=== PATIENT | female | born 1940 | race Caucasian/White ===

== ENCOUNTER 2024-10-26 15:13 | Outpatient (REF) | payer MEDICARE, SELFPAY ==
[2024-10-26 17:01] LABS: Anion Gap 12 (12-20); Blood Urea Nitrogen 27 mg/dL (9-16); Calcium 8.8 mg/dL (8.4-10.2); Carbon Dioxide 28 mmol/L (22-29); Chloride 98 mmol/L (96-108); Estimated Glomerular Filt Rate 18; Glucose Random 338 mg/dL (60-115); Sodium 134 mmol/L (135-145)
== END 2024-10-26 15:14 | disposition home or self-care (01) ==
LOC: HO.LAB 15:13
PROVIDERS: PCP Internal Medicine; Visit Provider Psychiatry & Neurology Neurology
DX: G30.9 Alzheimer's disease, unspecified (principal)
CPT/HCPCS: 36415; 80048

== ENCOUNTER 2024-12-06 16:13 | Outpatient (REF) | payer MEDICARE, SELFPAY ==
--- NOTE | ~2024-12-06 | CT_ITS ---
CLINICAL HISTORY: Alzheimers disease, unspecified CT of the head without intravenous contrast Comparison: None Findings: The ventricles and sulci are prominent, consistent with moderate generalized cerebral parenchymal volume loss. The ventricles are symmetric and the basilar cisterns are intact. Mild periventricular, deep and subcortical white matter hypodensities are nonspecific but statistically reflect the sequela of chronic small vessel ischemic change. No intracranial hemorrhage, extra-axial fluid collection, midline shift or mass-effect is evident. No evidence of acute large vessel or territorial ischemia. Brainstem and cerebellum unremarkable. Vascular calcifications indicate intracranial atherosclerosis. The imaged portion of the paranasal sinuses are clear. No mastoid effusions are demonstrated. The orbital contents are unremarkable. Calvarium is intact. Impression: 1. No CT evidence of acute intracranial abnormality. 2. Cerebral volume loss, intracranial atherosclerotic disease and mild sequela of chronic small vessel ischemic disease. This document has been electronically signed by: Feliciano Lynch MD on 12/07/2024 13:02:30
--- OUTSIDE RECORDS SUMMARY | 2024-12-06 18:18 | XMS_ITS | Continuity of Care Document ---
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 Name Role Phone Edy Rodriguez MD Unavailable Unavailable Allergies, Adverse Reactions, Alerts Substance Reaction Status Criticality atorvastatin Active No Information levofloxacin Active No Information Sulfa (Sulfonamide Antibiotics) Jaundice Active No Information Medications Medication Instructions Dosage Effective Dates (start - stop) Status Comments gabapentin 600 mg tablet take 1 tablet by oral route 2 times every day 600 MG - Active melatonin 10 mg tablet take 1 by Oral route once 1 - Active metformin 500 mg tablet take 1 tablet by oral route every day with morning and evening meals 500 MG - Active Vitamin D3 2,000 unit capsule take 1 Capsule by Oral route once 1 Capsule - Active iron ER 325 mg (65 mg iron) capsule,extended release take 1 by Oral route 3 times every day - Active PreserVision AREDS 14,320 unit-226 mg-200 unit capsule - Active omeprazole 20 mg capsule,delayed release take 1 Capsule by oral route every day before a meal 20 MG - Active Tylenol 325 mg tablet take 2 Tablet by oral route every 4 hours as needed 650 MG - Active Aspir-81 81 mg tablet,delayed release take 1 tablet by oral route every day - Active B Complex 1 tablet - Active MIRTAZAPINE (unknown strength) take 1 tablet by oral route every day at bedtime Not Available - Active metoprolol tartrate 25 mg tablet take 1 tablet by oral route 2 times every day 25 MG - Active trazodone 50 mg tablet take 1 tablet by oral route 3 times every day after meals 50 MG - Active VITAMIN B-12 (unknown strength) Not Available - Active Procedures Procedure Date OFFICE/OUTPATIENT VISIT, EST OFFICE/OUTPATIENT VISIT, EST TSH URINALYSIS W/ MICRO CBC W/DIFF WBC RBC SED RATE, AUTOMATED ANTI DNA SCREEN CRP ANTI-DNA TITER OFFICE/OUTPATIENT VISIT, EST CBC W/DIFF WBC RBC SED RATE, AUTOMATED CRP ALT/SGPT AST (SGOT) CREATININE ANTI DNA SCREEN C3/C4 URINALYSIS W/ MICRO ANTI-DNA TITER OFFICE/OUTPATIENT VISIT, EST CBC W/DIFF WBC RBC SED RATE, AUTOMATED CRP ALT/SGPT AST (SGOT) CREATININE C3/C4 ANTI DNA SCREEN ANTI-DNA TITER OFFICE/OUTPATIENT VISIT, EST OFFICE/OUTPATIENT VISIT, EST CBC W/DIFF WBC RBC SED RATE, AUTOMATED CRP ALT/SGPT AST (SGOT) CREATININE ANTI DNA SCREEN C3/C4 IRON FE IRON TIBC FERRITIN FOLIC ACID SERUM VITAMIN B-12 URINALYSIS W/ MICRO ANTI-DNA TITER OFFICE/OUTPATIENT VISIT, EST OFFICE/OUTPATIENT VISIT, EST Patient Not Seen OFFICE/OUTPATIENT VISIT, EST OFFICE/OUTPATIENT VISIT, EST ALT/SGPT AST (SGOT) CREATININE ANTI DNA SCREEN C3/C4 ANTI-DNA TITER OFFICE/OUTPATIENT VISIT, EST OFFICE/OUTPATIENT VISIT, EST CBC W/DIFF WBC RBC SED RATE, AUTOMATED CRP COMPREHEN METABOLIC PANEL ANTI DNA SCREEN C3/C4 ANTI-DNA TITER OFFICE/OUTPATIENT VISIT, EST OFFICE/OUTPATIENT VISIT, EST OFFICE/OUTPATIENT VISIT, EST Dexamethasone (1mg/unit) KENALOG (10mg/unit) CBC W/DIFF WBC RBC SED RATE, AUTOMATED CRP COMPREHEN METABOLIC PANEL ANTI DNA SCREEN C3/C4 URINALYSIS W/ MICRO ASSAY OF URINE CREATININE ANTI-DNA TITER OFFICE/OUTPATIENT VISIT, EST CBC W/DIFF WBC RBC SED RATE, AUTOMATED CRP COMPREHEN METABOLIC PANEL ANTI DNA SCREEN C3/C4 MONONUCLEAR CELL ANTIGEN OFFICE/OUTPATIENT VISIT, EST OFFICE/OUTPATIENT VISIT, EST RBC SED RATE, AUTOMATED CRP CPK ANTI DNA SCREEN C3/C4 NUCLEAR ANTIGEN ANTIBODY ANTI-DNA TITER OFFICE/OUTPATIENT VISIT, EST CPK ALDOLASE OFFICE/OUTPATIENT VISIT, EST CPK HEP B SURFACE ANTIBODY HBS AG HEPATITIS C ANTIBODY OFFICE/OUTPATIENT VISIT, NEW RBC SED RATE, AUTOMATED ADAM SCREEN RF LATEX QUALITATIVE ANTI DNA SCREEN NUCLEAR ANTIGEN ANTIBODY C3/C4 CRYOGLOBULIN- ALWAYS REFERENCE 14 ANTI HISTONE SPE PROTEIN, TOTAL SERUM, PLASMA OR WHOLE BL OOD URINALYSIS W/ MICRO ASSAY OF URINE CREATININE ADAM TITER ANTI-DNA TITER Advance Directives Directive Yes / No Effective Date File Name No Information Encounters Encounter Description Practice Location Reason(s) For Visit Diagnoses Date Provider Providers Copied on Encounter OFFICE/OUTPA TIENT VISIT, EST [facility], [address] [place] [address], [place], [place], [id number], [place] tel:[phone] [facility] musculoskeleta l complaints (chief complaint) 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 [address] [place] [address], [place], [place], [id number], [place]. tel:[phone] Specialist : Isra Coffey, [address], [place], [address]. tel:[phone] cialist: Juan Pablo Bates, [address], [place], [address]. tel:[phone] erring Provider: Ruben Tobias M, [address] [facility] [address], [place], [address]. 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 [address] [place] [address], [id number], [place]. tel:[phone] Specialist : Isra Coffey, [address], [place], [address]. tel:[phone] cialist: Juan Pablo Bates, [address], [place], [address]. tel:[phone] erring Provider: Ruben Randhawa, [address] [facility], [place], [address]. tel:[phone] OFFICE/OUTPA TIENT VISIT, EST [facility], [address] [place] [address], [id number], [place] tel:[phone] [facility] musculoskeleta l complaints (chief complaint) Essential (primary) hypertensionA therosclerosi s of CABG w angina pectoris w documented spasmGERD without esophagitisOA of 1st CMC jointSystemic disorders of connective tissue in other diseases classified elsewhereTrig parker finger, right middle fingerOsteopo rosis without current fractureStage 3 CKD Apr- 6-201 9 Jennifer Snow. [address] [place] [address], [id number], [place]. tel:[phone] Specialist : Isra Coffey, [address], [place], [address]. tel:[phone] cialist: Juan Pablo Bates, [address], [place], [address]. tel:[phone] erring Provider: Ruben Randhawa, [address] [facility], [place], [address]. tel:[phone] OFFICE/OUTPA TIENT VISIT, EST [facility], [address] [place] [address], [id number], [place] tel:[phone] [facility] musculoskeleta l complaints (chief complaint) Essential (primary) hypertensionA therosclerosi s of CABG w angina pectoris w documented spasmGERD without esophagitisOA of 1st CMC jointSystemic disorders of connective tissue in other diseases classified elsewhereTrig parker finger, right middle fingerOsteopo rosis without current fractureStage 3 CKD 8 Amor Card. [address] [place], [place], [id number], [place]. tel:[phone] Referring Provider: Edy Fajardo, [address] [place] [address], [id number] . tel:[phone] OFFICE/OUTPA TIENT VISIT, EST [facility], [address] [place] [address], [id number], [place] tel:[phone] [facility] [place] musculoskeleta l complaints (chief complaint) Essential (primary) hypertensionA therosclerosi s of CABG w angina pectoris w documented spasmGERD without esophagitisOA of 1st CMC jointSystemic disorders of connective tissue in other diseases classified elsewhereTrig parker finger, right middle fingerOsteopo rosis without current fractureStage 3 CKD 8 Jennifer Snow. [address] [place] [address], [id number], [place]. tel:[phone] Specialist : Isra Coffey, [address], [place], [address]. tel:[phone] cialist: Juan Pablo Bates, [address], [place], [address]. tel:[phone] erring Provider: Ruben Tobias M, [address] [facility] [address], [place], [address]. tel:[phone] OFFICE/OUTPA TIENT VISIT, EST [facility], [address] [place] [address], [place], [place], [id number], [place] tel:[phone] [facility] [place] musculoskeleta l complaints (chief complaint) Essential (primary) hypertensionA therosclerosi s of CABG w angina pectoris w documented spasmGERD without esophagitisOA of 1st CMC jointSystemic disorders of connective tissue in other diseases classified elsewhereTrig parker finger, right middle fingerOsteopo rosis without current fracture 8 Amor Card. [address] [place] [address], [id number], [place]. tel:[phone] Referring Provider: Edy Fajardo, [address] [place] [address], [id number] . tel:[phone] OFFICE/OUTPA TIENT VISIT, EST [facility], [address] [place] [address], [address] [place] [address], tel:[phone] [facility] [place] musculoskeleta l complaints (chief complaint) Essential (primary) hypertensionA therosclerosi s of CABG w angina pectoris w documented spasmGERD without esophagitisOA of 1st CMC jointSystemic disorders of connective tissue in other diseases classified elsewhereTrig parker finger, right middle fingerOsteopo rosis without current fracture 8 Jennifer Snow. [address] [place] [address], [id number], . tel:[phone] Specialist : Isra Coffey, [address], [place], [address]. tel:[phone] cialist: Juan Pablo Bates, [address], [place], [address]. tel:[phone] erring Provider: Ruben Randhawa, [address] [facility] [address], [place], [address]. tel:[phone] OFFICE/OUTPA TIENT VISIT, EST [facility], [address] [place] [address], [id number], [place] tel:[phone] [facility] musculoskeleta l complaints (chief complaint) Essential (primary) hypertensionA therosclerosi s of CABG w angina pectoris w documented spasmGERD without esophagitisOA of 1st CMC jointSystemic disorders of connective tissue in other diseases classified elsewhereTrig parker finger, right middle fingerOsteopo rosis without current fracture 8 Angela Nguyen. [address] [place] [address], [place], [place], [id number], . tel:[phone] Referring Provider: Edy Fajardo, [address] [place] [address], [id number] . tel:[phone] [facility], [address] [place] [address], [id number], [place] tel:[phone] [facility] [place] No Information 8 Jesus De. [address] [place] [address], [address] [place] [address], [place]. tel:[phone] [facility], [address] [place] [address], [address] [place] [address], [place] tel:[phone] [facility] [place] No Information 8 Angela Nguyen. [address] [place] [address], [address] [place] [address], [place]. tel:[phone] Referring Provider: Edy Fajardo, [address] [place] [address], [id number] . tel:[phone] OFFICE/OUTPA TIENT VISIT, EST [facility], [address] [place] [address], [id number], [place] tel:[phone] [facility] musculoskeleta l complaints (chief complaint) Systemic disorders of connective tissue in other diseases classified elsewhereOste oporosis without current fractureGERD without esophagitisAt herosclerosis of CABG w angina pectoris w documented spasmEssentia l (primary) hypertensionT suspender cutter finger, right middle fingerOA of 1st CMC joint 8 Jennifer Snow. [address] [place] [address], [address] [place] [address], [place]. tel:[phone] Specialist : Isra Coffey, [address], [place], [address]. tel:[phone] erring Provider: Ruben Randhawa, [address] [facility], [place], [address]. tel:[phone] OFFICE/OUTPA TIENT VISIT, EST [facility], [address] [place] [address], [id number], [place] tel:[phone] [facility] musculoskeleta l complaints (chief complaint) Systemic disorders of connective tissue in other diseases classified elsewhereOste oporosis without current fractureAther osclerosis of CABG w angina pectoris w documented spasmEssentia l (primary) hypertensionT ype 2 diabetes mellitus without complications GERD without esophagitisAn emia, due to chronic disease 7 Jennifer Snow. [address] [place], [place], [id number], [place]. tel:[phone] [facility] : [facility] [address], [place], [address]. tel:[phone] erring Provider: Ruben Randhawa, [address] [facility] [address], [place], [address]. tel:[phone] OFFICE/OUTPA TIENT VISIT, EST [facility], [address] [place] [address], [id number], [place] tel:[phone] [facility] Follow Up of musculoskeleta l complaints (chief complaint) Systemic disorders of connective tissue in other diseases classified elsewhereAthe rosclerosis of CABG w angina pectoris w documented spasmCHF 6 Jennifer Snow. [address] [place], [place], [id number], [place]. tel:[phone] Specialist : [facility] [address], [place], [address]. tel:[phone] erring Provider: Ruben Randhawa, [address] [facility], [place], [address]. tel:[phone] OFFICE/OUTPA TIENT VISIT, EST [facility], [address] [place] [address], [id number], [place] tel:[phone] [facility] musculoskeleta l complaints (chief complaint) Systemic disorders of connective tissue in other diseases classified elsewhereCHFA therosclerosi s of CABG w angina pectoris w documented spasmEssentia l (primary) hypertensionT ype 2 diabetes mellitus without complications Anemia, due to chronic diseaseOsteop orosis without current fractureGERD without esophagitis 6 Jennifer Snow. [address] [place] [address], [id number], [place]. tel:[phone] Specialist : Isra Coffey, [address] [facility] [address], [place], [address]. tel:[phone] erring Provider: Ruben Randhawa, [address] [facility], [place], [address]. tel:[phone] OFFICE/OUTPA TIENT VISIT, EST [facility], [address] [place] [address], [id number], [place] tel:[phone] [facility] musculoskeleta l complaints (chief complaint) Systemic disorders of connective tissue in other diseases classified elsewhereCHFA therosclerosi s of CABG w angina pectoris w documented spasmEssentia l (primary) hypertensionT ype 2 diabetes mellitus without complications Anemia, due to chronic disease 6 Jennifer Snow. [address] [place] [address], [id number], [place]. tel:[phone] , [address] [address], [place], [address] .Referring Provider: Ruben Randhawa, [address] [facility], [place], [address]. 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 [address] [place] [address], [id number], [place]. tel:[phone] , [address] [address], [place], [address] .Referring Provider: Ruben Randhawa, [address] [facility], [place], [address]. tel:[phone] OFFICE/OUTPA TIENT VISIT, EST [facility], [address] [place] [address], [id number], [place] tel:[phone] [facility] [place] musculoskeleta l complaints (chief complaint) Connective tissue disease 5 Jennifer Snow. [address] [place] [address], [id number], [place]. tel:[phone] , [address] [address], [place], [address] .Referring Provider: Ruben Randhawa, [address] [facility], [place], [address]. tel:[phone] OFFICE/OUTPA TIENT VISIT, EST [facility], [address] [place] [address], [id number], [place] tel:[phone] [facility] musculoskeleta l complaints (chief complaint) Connective tissue disease 5 Jennifer Snow. [address] [place] [address], [id number], [place]. tel:[phone] , [address] [address], [place], [address] .Referring Provider: Ruben Randhawa, [address] [facility], [place], [address]. tel:[phone] OFFICE/OUTPA TIENT VISIT, EST [facility], [address] [place] [address], [id number], [place] tel:[phone] [facility] musculoskeleta l complaints (chief complaint) Muscle weakness 5 Jennifer Snow. [address] [place] [address], [id number], [place]. tel:[phone] , [address] [address], [place], [address] .Referring Provider: Ruben Randhawa, [address] [facility], [place], [address]. tel:[phone] OFFICE/OUTPA TIENT VISIT, EST [facility], [address] [place] [address], [id number], [place] tel:[phone] [facility] musculoskeleta l complaints (chief complaint) Muscle weakness 4 Jennifer Snow. [address] [place], [place], [id number], [place]. tel:[phone] Specialist : Jhony Sharp, [address] [facility] [address], [place], [address] . tel:[phone] erring Provider: Ruben Randhawa, [address] [facility] [address], [place], [address]. tel:[phone] OFFICE/OUTPA TIENT VISIT, EST [facility], [address] [place] [address], [id number], [place] tel:[phone] [facility] musculoskeleta l complaints (chief complaint) Muscle weakness 4 Jennifer Snow. [address] [place] [address], [id number], [place]. tel:[phone] Referring Provider: Ruben Randhawa, [address] [facility], [place], [address]. tel:[phone] OFFICE/OUTPA TIENT VISIT, EST [facility], [address] [place] [address], [id number], [place] tel:[phone] [facility] musculoskeleta l complaints (chief complaint) Abnormal blood tests 4 Jennifer Snow. [address] [place] [address], [id number], [place]. tel:[phone] Referring Provider: Ruben Randhawa, [address] [facility], [place], [address]. tel:[phone] OFFICE/OUTPA TIENT VISIT, NEW [facility], [address] [place] [address], [id number], [place] tel:[phone] [facility] musculoskeleta l complaints (chief complaint) Abnormal blood tests 4 Jennifer Snow. [address] [place] [address], [id number], [place]. tel:[phone] Referring Provider: Ruben Randhawa, [address] [place], [address]. tel:[phone] Family History Family Member Type Diagnosis Age At Onset Problem (finding) Family history of hyper tension Problem (finding) Family history of migra ine Problem (finding) Family history of malignant neoplasm of lung Immunizations Vaccine Date Status Comments Influenza, high dose seasonal administere d Source: Other Provider Influenza, high dose seasonal administere d Source: Other Provider Payers Payer name Insurance type Covered alliance party ID Authoreba alf(s) [facility] 16 [id number] Social History Type Description Quantity Date Captured Comments Alcohol Use Details Unknown Caffeine Use Details Unknown Tobacco Use Status No Information Smoking Status No Information Sex Female Vital Signs Date / Time: Height Weight BMI Pulse Rate Blood Pressure Temperature Respiratory Rate Body Surface Area Head Circumference Head Circ. Percentile Wt./Daniel. Percentile BMI percentile Pulse Ox Inhaled Ox 10:36 AM 63.75 in 58.513 kg (129.00 lbs) 22.3 2 kg/m eter (2) 88 /min 109/55 mm[Hg] 96.80 F 16 /min 97 % Chief Complaint And Reason For Visit From encounter dated '11/09/2020 10:30'. musculoskeletal complaints (chief complaint). Description: Onset: years. The severity of the problem is mild. Pain scale: 5/10. The symptoms are intermittent. The primary symptoms reported include: pain. The patient assesses the interval disease activity as: stable. No locations affected since patient's last visit. Associated symptoms include fatigue. Pertinent negatives include AM stiffness and joint swelling. Reason For Referral Reason For Referral No Information Plan Of Treatment Date Type Action Status Patient Education Muscle Conditioning: Ex ercises completed Patient Education Muscle Conditioning: Ex ercises completed Future Order: Lab Order COMPLEME NT C4 ([id number]), Sent on: Sent Future Order: Lab Order COMPLEME NT C3 ([id number]), Sent on: Sent Future Order: Lab Order URINALYS IS 2* ([id number]), Sent on: Sent Future Order: Lab Order CBC w/ D iff* ([id number]), Sent on: Sent Future Order: Lab Order DNA Scre en* ([id number]), Sent on: Sent Future Order: Lab Order ESR* ([id number]), S ent on: Sent Future Order: Lab Order CRP* ([id number]), S ent on: Sent Future Order: Lab Order COMPLEME NT TOTAL ([id number]), Sent on: Sent History Of Present Illness Encounter Date Complaint History Of Prese nt Illness musculoskeletal complaints Onset : years. The severity of the problem is mild. Pain scale: 5/10. The symptoms are intermittent. The primary symptoms reported include: pain. The patient assesses the interval disease activity as: stable. No locations affected since patient's last visit. Associated symptoms include fatigue. Pertinent negatives include AM stiffness and joint swelling. musculoskeletal complaints Onset : years. The severity of the problem is mild. Pain scale: 4/10. The symptoms are recurring. The problem has not changed. The primary symptoms reported include: fatigue. The patient assesses the interval disease activity as: variable. The locations affected since last visit are low back. Associated symptoms include fatigue and mouth sores/lesions. Pertinent negatives include AM stiffness, sicca complaints and joint swelling. musculoskeletal complaints Onset : years. The severity of the problem is moderate. Pain scale: 4/10. The symptoms are intermittent. The problem has not changed. The primary symptoms reported include: pain. The patient assesses the interval disease activity as: no change. Associated symptoms include fatigue, mouth sores/lesions and chest pain. RAPID3 Score: 2.3. Pertinent negatives include fever, AM stiffness, sicca complaints, joint swelling and abdominal pain. musculoskeletal complaints Onset : years. The severity of the problem is mild. Pain scale: 3/10. The symptoms are intermittent. The problem has worsened. The primary symptoms reported include: pain. The patient assesses the interval disease activity as: worse. Associated symptoms include fever, mouth sores/lesions and chest pain. RAPID3 Score: 2.9. Pertinent negatives include fatigue, AM stiffness, sicca complaints, joint swelling and abdominal pain. musculoskeletal complaints Onset : years. Pain scale: 7/10. The primary symptoms reported include: pain. Associated symptoms include mouth sores/lesions and chest pain. RAPID3 Score: 4.6. Pertinent negatives include fever, fatigue, AM stiffness, sicca complaints, joint swelling and abdominal pain. musculoskeletal complaints Onset : years. The severity of the problem is moderate. Pain scale: 2/10. The symptoms are intermittent. The problem has worsened. The patient denies: pain. The patient assesses the interval disease activity as: worse. The locations affected since last visit are non articular sites (chest pain). Associated symptoms include fatigue, mouth sores/lesions and chest pain. RAPID3 Score: 3.6. Pertinent negatives include fever, AM stiffness, sicca complaints, joint swelling and abdominal pain. musculoskeletal complaints Onset : years. The severity of the problem is mild. Pain scale: 3/10. The problem has not changed. The patient denies: pain. The patient assesses the interval disease activity as: variable. Associated symptoms include fatigue and mouth sores/lesions. RAPID3 Score: 3.7. Pertinent negatives include fever, AM stiffness, sicca complaints, chest pain, joint swelling and abdominal pain. musculoskeletal complaints Onset : years. The severity of the problem is mild. Pain scale: 2/10. The symptoms are constant. The patient denies: pain, stiffness, functional limitation and progression of deformity. The patient assesses the interval disease activity as: stable. The patient's assessment of treatment is: helping some. The patient is not experiencing side effects. Associated symptoms include AM stiffness and mouth sores/lesions. Pertinent negatives include fever, infection, eye symptoms, sicca complaints, chest pain, joint swelling and abdominal pain. musculoskeletal complaints Onset : years. The severity of the problem is mild. Pain scale: 3/10. The primary symptoms reported include: pain. The patient assesses the interval disease activity as: stable. Pertinent negatives include sicca complaints. musculoskeletal complaints Onset : years. The severity of the problem is mild. Pain scale: 3/10. The symptoms are intermittent. The primary symptoms reported include: pain. The patient assesses the interval disease activity as: stable. Associated symptoms include fatigue, mouth sores/lesions and chest pain. RAPID3 Score: 3.8. Pertinent negatives include fever, AM stiffness, sicca complaints, joint swelling and abdominal pain. Follow Up of musculo skeletal complaints Onset: years. There are no symptoms. Pain scale: 1/10. The symptoms are intermittent. The problem has not changed. The primary symptoms reported include: pain. The patient assesses the interval disease activity as: stable. The patient's assessment of treatment is: helping greatly. Associated symptoms include mouth sores/lesions and chest pain. RAPID3 Score: 2.3. Pertinent negatives include fever, fatigue, AM stiffness, sicca complaints, joint swelling and abdominal pain. musculoskeletal complaints Onset : years. The severity of the problem is mild. Pain scale: 3/10. The symptoms are intermittent. The patient assesses the interval disease activity as: stable. Pertinent negatives include sicca complaints. musculoskeletal complaints Onset : years. The severity of the problem is mild. Pain scale: 3/10. The symptoms are intermittent. The patient denies: pain. The patient assesses the interval disease activity as: stable. Associated symptoms include fatigue, mouth sores/lesions and chest pain. RAPID3 Score: 5.2. Pertinent negatives include fever, AM stiffness, sicca complaints, joint swelling and abdominal pain. musculoskeletal complaints Onset : years. Pain scale: 0/10. The symptoms are intermittent. The patient denies: pain. The patient assesses the interval disease activity as: stable. Associated symptoms include fatigue, mouth sores/lesions and chest pain. RAPID3 Score: 4.2. Pertinent negatives include fever, AM stiffness, sicca complaints, joint swelling and abdominal pain. musculoskeletal complaints Onset : years. The severity of the problem is moderate. Pain scale: 5/10. The symptoms are constant. The problem is worsening. The patient denies: pain and stiffness. The patient assesses the interval disease activity as: worse. Associated symptoms include fatigue. RAPID3 Score: 5.9. Pertinent negatives include fever, AM stiffness, sicca complaints, mouth sores/lesions, chest pain, joint swelling and abdominal pain. musculoskeletal complaints Onset : years. The severity of the problem is mild. Pain scale: 4/10. The symptoms are intermittent. The problem has improved. The primary symptoms reported include: pain. The patient assesses the interval disease activity as: stable. Associated symptoms include fatigue and mouth sores/lesions. RAPID3 Score: 3.7. Pertinent negatives include fever, AM stiffness, sicca complaints, chest pain, joint swelling and abdominal pain. musculoskeletal complaints Onset : years. The severity of the problem is mild. Pain scale: 1/10. The symptoms are intermittent. The problem has improved. The patient denies: pain and stiffness. The patient assesses the interval disease activity as: improving. musculoskeletal complaints Onset : years. The problem is severe. Pain scale: 1/10. The symptoms are constant. The problem has not changed. The primary symptoms reported include: functional limitation. The patient denies: pain and stiffness. The patient assesses the interval disease activity as: stable. Associated symptoms include fatigue and mouth sores/lesions. RAPID3 Score: 3.8. Pertinent negatives include fever, AM stiffness, sicca complaints, chest pain, joint swelling and abdominal pain. musculoskeletal complaints Onset : years. Pain scale: 0/10. The primary symptoms reported include: pain. Associated symptoms include fever, fatigue and mouth sores/lesions. RAPID3 Score: 3.1. Pertinent negatives include AM stiffness, sicca complaints, chest pain, joint swelling and abdominal pain. musculoskeletal complaints Onset : years. There are no symptoms. Pain scale: 0/10. The symptoms never occur. The patient denies: pain and stiffness. The patient assesses the interval disease activity as: stable. Associated symptoms include fatigue, mouth sores/lesions and chest pain. RAPID3 Score: 2.8. Pertinent negatives include fever, AM stiffness, sicca complaints, joint swelling and abdominal pain. musculoskeletal complaints Onset : years. The severity of the problem is mild. Pain scale: 0/10. The symptoms are intermittent. The problem has not changed. The patient denies: pain and stiffness. The patient assesses the interval disease activity as: stable. Associated symptoms include fatigue, mouth sores/lesions and chest pain. RAPID3 Score: 2.7. Pertinent negatives include fever, AM stiffness, change in vision, sicca complaints, skin lesion(s), cough, edema, joint swelling and abdominal pain. Functional Status Date Functional Assessmen t Pain Score 5/10 Instructions Date Instruction Additional Infor demetrice Reviewed labs with jovita Andrew PLQ 200mg PO once dailyDiscussed trying topical therapies for dry mouth: biotene products, xylimeltsSample of Aquoral provided- if beneficial will send in script to [facility]Discussed trying either pilocarpine or evoxac, but will need to confirm no drug interactions and she curious about cost. If interested she will call us. 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 Fatigue issues wax and wane- continue PLQ 200mg po BID- She has seen the retinologist- everything is stable. - update lupus monitoring labs, CBC with diff and CMP. Has an UTI right now and she is on treatment. 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 Otherwise negative CTD ROS- recent labs through Dr. Tobias reviewed- ok-discussed Benlysta but lupus activity levels have trended down- had covid vaccine x 1- she is moving [place]- PMH: She has fatigue, subjective muscle weakness, loss of appetite in the setting of a positive ADAM, dsDNA, elevated inflammatory markers and depressed complements. 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 Tobias; just started on Prolia but it is expensive assessment Stage 3 CKD impression - hospitalized Jul 2018 for YOGESH on CKD due to dehydration impression assessment Essential (primary) hypertension assessment Fatigue impression - her most pervasive and bothersome symptom- recent labs from Dr. Tobias looked ok- encouraged regular gentle exercise Mental Status Date Cognitive Assessment Orientation - [place] ed to time, place, person, situation. Patient Care Teams Name Effective Dates (start - stop) Status Members No Information
--- OUTSIDE RECORDS SUMMARY | 2024-12-06 18:18 | XMS_ITS | Continuity of Care Document ---
Author Organization [facility] Address [address] [place] [address] Phone Care Team Providers Care Director Clinical Operations Name Role Phone No Information Unavailable Unavailable Advance Directives Directive Yes / No Effective Date File Name No Information Encounters Encounter Description Practice Location Reason(s) For Visit Diagnoses Date Provider Providers Copied on Encounter Medical [facility], [address], [place], [place], [id number], [place] tel:[phone] No Information No Information Family History Family Member Type Diagnosis Age At Onset No Information Payers Payer name Insurance type Covered constitution party ID Authoriza tion(s) No Information Social History Type Description Quantity Date Captured Comments Sex Undifferentiated Smoking Status No Information Chief Complaint And Reason For Visit No Information Reason For Referral Reason For Referral No Information History Of Present Illness Encounter Date Complaint History Of Prese nt Illness No Information Functional Status Date Functional Assessmen t No Information Instructions Date Instruction Additional Infor mation No Information Assessments Type Assessment Date No Information Patient Care Teams Name Effective Dates (start - stop) Status Members No Information
== END 2024-12-06 16:14 | disposition home or self-care (01) ==
LOC: HO.CT 16:13
PROVIDERS: PCP Internal Medicine; Visit Provider Psychiatry & Neurology Neurology
DX: G30.9 Alzheimer's disease, unspecified (principal)
CPT/HCPCS: 70450

== ENCOUNTER → 2024-12-06 16:15 | Outpatient (BNV) | payer MEDICARE, SELFPAY | PROVIDERS: PCP Internal Medicine; Visit Provider Radiology Diagnostic Radiology | DX: I67.2 Cerebral atherosclerosis (principal) | CPT/HCPCS: 70450 ==